=== PATIENT | female | born 1950 | race Caucasian/White ===

== ENCOUNTER 2019-11-29 13:06 | Emergency (ER) | payer BC, MEDICAID ==
[~2019-11-29] VITALS: Ht 165.1 cm; Wt 77.3 kg
[~2019-11-29 13:06] MED LIST: CETI10TA51 PO
[2019-11-29 13:11] VITALS: BP 112/59
[2019-11-29] MEDS ORDERED: ondansetron 4mg rapidly disintigrating tab PO ONE (13:45)
[2019-11-29] MEDS ORDERED: oxyCODONE/APAP 5-325mg tablet PO ONE (13:45)
[2019-11-29] MEDS ORDERED: HYDR-3965 PO (13:51)
[2019-11-29] MEDS ORDERED: DOCU100C41 PO (13:51)
== END 2019-11-29 14:07 | disposition home or self-care (01) ==
LOC: ER 13:07
DX: S42.202A Unspecified fracture of upper end of left humerus, initial encounter for closed fracture (principal); G89.29 Other chronic pain; F17.200 Nicotine dependence, unspecified, uncomplicated; Z90.49 Acquired absence of other specified parts of digestive tract; Z88.5 Allergy status to narcotic agent; Z79.899 Other long term (current) drug therapy; W18.39XA Other fall on same level, initial encounter; Y93.89 Activity, other specified; Y92.89 Other specified places as the place of occurrence of the external cause; Y99.8 Other external cause status
CPT/HCPCS: 29105; 73030; 99283

== ENCOUNTER 2020-08-09 19:00 | Emergency (ER) | payer BC, MEDICAID ==
[~2020-08-09] VITALS: Ht 165.1 cm; Wt 81.8 kg
[~2020-08-09 19:00] MED LIST changes: +DOCU100C41 PO
[2020-08-09 19:05] VITALS: BP 131/51
[2020-08-09] MEDS ORDERED: NAPR-56 PO (20:58)
== END 2020-08-09 21:14 | disposition home or self-care (01) ==
LOC: ER 19:00
DX: M25.572 Pain in left ankle and joints of left foot (principal); M25.472 Effusion, left ankle; G89.29 Other chronic pain; Z90.49 Acquired absence of other specified parts of digestive tract; Z88.8 Allergy status to other drugs, medicaments and biological substances; Z79.899 Other long term (current) drug therapy
CPT/HCPCS: 73564; 99283

== ENCOUNTER 2023-08-13 12:17 | Emergency (ER) | payer BC, MEDICAID ==
[~2023-08-13] VITALS: Ht 165.1 cm; Wt 77.3 kg
[2023-08-13 12:32] VITALS: BP 109/53; PULSE 61; TEMP 99; O2SAT 96
[2023-08-13] MEDS ORDERED: ondansetron/PF 4mg/2ml inj IM ONE (14:00)
[2023-08-13] MEDS ORDERED: LIDOcaine 1% 30ml preserv. free vial IJ STA (15:10)
[2023-08-13] MEDS ORDERED: HYDROcodone/acetaminophen 5mg/325mg tablet PO ONE (15:20)
[2023-08-13 16:10] VITALS: RESP 16
== END 2023-08-13 16:15 | disposition home or self-care (01) ==
LOC: ER 12:18
DX: S52.571A Other intraarticular fracture of lower end of right radius, initial encounter for closed fracture (principal); G89.29 Other chronic pain; Z90.49 Acquired absence of other specified parts of digestive tract; Z79.899 Other long term (current) drug therapy; W18.09XA Striking against other object with subsequent fall, initial encounter; Z91.81 History of falling; Y93.01 Activity, walking, marching and hiking; Y92.89 Other specified places as the place of occurrence of the external cause; Y99.8 Other external cause status
CPT/HCPCS: 29125; 70450; 73100; 73110; 96372; 99285; J2405